=== PATIENT | female | born 1940 | race Caucasian/White ===

== ENCOUNTER → 2020-06-20 | Outpatient (CLI) | payer MEDICARE ==
[~2020-06-20] MED LIST: OMNIPAQUE 350 MG/ML, 100ML BOTTLE ONE
== END | disposition home or self-care (01) ==
LOC: CFH 10:07
PROVIDERS: ATTEND Internal Medicine
DX: N28.89 Other specified disorders of kidney and ureter (principal); R91.8 Other nonspecific abnormal finding of lung field; R59.0 Localized enlarged lymph nodes; R63.4 Abnormal weight loss
CPT/HCPCS: 74177; Q9967

== ENCOUNTER 2020-07-03 06:00 | Day surgery (SDC) | payer MEDICARE ==
[~2020-07-03] VITALS: Ht 162.6 cm; Wt 83.3 kg
[2020-07-03 06:49] VITALS: BP 121/60
[2020-07-03 07:50] LABS: INTERNATIONAL NORMALIZED RATIO 1.04 (0.93-1.1); PROTHROMBIN TIME 11.1 Seconds (9.6-11.5)
[2020-07-03] MEDS ORDERED: FENTANYL PF 100 MCG/2ML ONE (08:19)
[2020-07-03] MEDS ORDERED: MIDAZOLAM 1 MG/ML, 5ML ONE (08:19)
== END 2020-07-03 09:45 | disposition home or self-care (01) ==
LOC: OUT 06:00
PROVIDERS: ATTEND Internal Medicine
DX: C78.7 Secondary malignant neoplasm of liver and intrahepatic bile duct (principal); I12.9 Hypertensive chronic kidney disease with stage 1 through stage 4 chronic kidney disease, or unspecified chronic kidney disease; E11.22 Type 2 diabetes mellitus with diabetic chronic kidney disease; N18.2 Chronic kidney disease, stage 2 (mild); E78.5 Hyperlipidemia, unspecified; E03.9 Hypothyroidism, unspecified; M81.0 Age-related osteoporosis without current pathological fracture; M17.10 Unilateral primary osteoarthritis, unspecified knee; E66.9 Obesity, unspecified; F17.210 Nicotine dependence, cigarettes, uncomplicated; Z79.84 Long term (current) use of oral hypoglycemic drugs; Z79.899 Other long term (current) drug therapy; Z79.82 Long term (current) use of aspirin; Z68.31 Body mass index [BMI] 31.0-31.9, adult
CPT/HCPCS: 47000; 76942; 82962; 85610; 88307; 99156; J2250; J3010

== ENCOUNTER 2020-07-24 11:39 | Day surgery (SDC) | payer MEDICARE ==
[~2020-07-24] VITALS: Ht 160 cm; Wt 75.0 kg
[2020-07-24 12:05] VITALS: BP 124/78
[2020-07-24] MEDS ORDERED: CEFAZOLIN PMX 1GM/50ML 50 ML ONE (12:10)
[2020-07-24] MEDS ORDERED: SODIUM CHLORIDE 0.9% 1,000 ML IV SCH (12:30)
[2020-07-24] MEDS ORDERED: CEFAZOLIN 1,000 MG IM ONE (12:30)
[2020-07-24] MEDS ORDERED: LIDOCAINE 1%, 20ML ONE ×2 (12:51→14:10)
[2020-07-24] MEDS ORDERED: NALOXONE 1 MG/ML, 2ML ONE (13:43)
[2020-07-24] MEDS ORDERED: FLUMAZENIL 0.1 MG/1 ML, 5ML ONE (13:43)
[2020-07-24] MEDS ORDERED: FENTANYL PF 100 MCG/2ML ONE (13:43)
[2020-07-24] MEDS ORDERED: MIDAZOLAM 1 MG/ML, 5ML ONE (13:43)
== END 2020-07-24 15:30 | disposition home or self-care (01) ==
LOC: OUT 11:39
PROVIDERS: ATTEND Internal Medicine Hematology & Oncology
DX: C18.9 Malignant neoplasm of colon, unspecified (principal); C78.7 Secondary malignant neoplasm of liver and intrahepatic bile duct; C78.02 Secondary malignant neoplasm of left lung; C78.01 Secondary malignant neoplasm of right lung; C77.2 Secondary and unspecified malignant neoplasm of intra-abdominal lymph nodes; I10 Essential (primary) hypertension; E11.9 Type 2 diabetes mellitus without complications; Z95.0 Presence of cardiac pacemaker
CPT/HCPCS: 36561; 76937; 77001; 99156; 99157; C1788; J1642; J2250; J3010; J7030; J2310